=== PATIENT | female | born 1945 | race Caucasian/White ===

== ENCOUNTER → 2020-11-20 | Outpatient (CLI) | payer OTHER ==
[~2020-11-20] MED LIST: BUMETANIDE1 MG PO; COREG 25MG TAB25 MG PO; ECOTRIN81 MG PO; K-DUR TAB 20 M20 MEQ PO
== END ==
LOC: HEART 5 10-31 13:30
DX: R94.31 Abnormal electrocardiogram [ECG] [EKG] (principal); I27.20 Pulmonary hypertension, unspecified; Z95.2 Presence of prosthetic heart valve; I08.1 Rheumatic disorders of both mitral and tricuspid valves
CPT/HCPCS: 93306